=== PATIENT | female | born 1960 | race Caucasian/White ===

== ENCOUNTER → 2017-02-23 | Outpatient (CLI) | payer BC, OTHER ==
[~2017-02-23] MED LIST: No meds per pt.
[2017-02-23 11:00] LABS: ASPARTATE AMINO TRANSFERASE 27 U/L (15-37); BLOOD UREA NITROGEN 19 mg/dL (7-18)
[2017-02-23 11:37] LABS: HIV 1&2 ANTIBODY SCREEN Nonreactive (Nonreactive); HIV-1 p24 ANTIGEN Nonreactive (Nonreactive)
[2017-02-23 19:58] LABS: HEPATITIS C VIRUS ANTIBODY Nonreactive (Nonreactive)
== END | disposition home or self-care (01) ==
LOC: STAR 09:32
PROVIDERS: ATTEND Orthopaedic Surgery Orthopaedic Surgery of the Spine
DX: Z01.818 Encounter for other preprocedural examination (principal); M47.894 Other spondylosis, thoracic region; R79.1 Abnormal coagulation profile
CPT/HCPCS: 36415; 71020; 80053; 80074; 81001; 81003; 85025; 85610; 85651; 85730; 86703; 87899; 93005; G0435

== ENCOUNTER 2017-03-07 10:55 | Inpatient (IN) | payer BC, OTHER ==
[~2017-03-07] VITALS: Ht 157.5 cm; Wt 102.6 kg
[~2017-03-07 10:55] MED LIST changes: +BUPIVACAINE/PF-EPI 0.5% 1:200K ONE; +CEFAZOLIN 1,000 MG ONE; +DEXAMETHASONE 4 MG/ML, 1ML ONE; +EPINEPHRINE 1 MG/ML, 1ML ONE; +FENTANYL PF 100 MCG/2ML ONE; +LIDOCAINE/PF 1%, 30ML ONE; +ONDANSETRON 2MG/ML, 2ML ONE; +PHENYLEPHRINE 10 MG/ML ONE; +PROPOFOL 10 MG/ML, 20ML ONE; +PROPOFOL 10 MG/ML, 50ML ONE; +ROCURONIUM 10 MG/ML ONE; +SUCCINYLCHOLINE 20 MG/ML, 10ML ONE; +THROMBIN 5,000 UNIT VIAL TP ONE; +VANCOMYCIN 1,000 MG ONE; +morphine SULFATE/PF 1 MG/ML, 10ML ONE
[2017-03-07] MEDS ORDERED: LACTATED RINGERS 1,000 ML IV SCH (11:31)
[2017-03-07] MEDS ORDERED: GABA300C10 PO (11:31)
[2017-03-07] MEDS ORDERED: MUPI22OI2 NAS (11:31)
[2017-03-07] MEDS ORDERED: ASCO-96 PO (11:31)
[2017-03-07] MEDS ORDERED: MULT-464 PO (11:31)
[2017-03-07] MEDS ORDERED: CELE200C PO (11:31)
[2017-03-07] MEDS ORDERED: VITA1CAP PO (11:31)
[2017-03-07] MEDS ORDERED: LIDOCAINE 1%, 2ML ONE (11:39)
[2017-03-07] MEDS ORDERED: LIDOCAINE 1%, 2ML SQ PRN (12:00)
[2017-03-07] MEDS ORDERED: FENTANYL PF 100 MCG/2ML ONE ×3 (12:45)
[2017-03-07] MEDS ORDERED: MIDAZOLAM 1 MG/ML, 2ML ONE (12:45)
[2017-03-07] MEDS ORDERED: MEPERIDINE/PF 25MG/0.5ML IVPush PRN (14:00)
[2017-03-07] MEDS ORDERED: OXYcodone 5 MG/5 ML ORAL.SOL UDC PO PRN (14:00)
[2017-03-07] MEDS ORDERED: PROMETHAZINE 25 MG/ML, 1ML IV PRN (14:00)
[2017-03-07] MEDS ORDERED: METOCLOPRAMIDE 5 MG/ML, 2ML IV PRN (14:00)
[2017-03-07] MEDS ORDERED: FENTANYL PF 100 MCG/2ML IV PRN (14:00)
[2017-03-07] MEDS ORDERED: HYDROmorphone 1 MG/ML, 1ML IV PRN (14:00)
[2017-03-07] MEDS ORDERED: LABETALOL 5MG/ML, 20ML IV PRN ×2 (14:00→20:00)
[2017-03-07] MEDS ORDERED: hydrALAzine 20 MG/ML, 1ML IV PRN (14:00)
[2017-03-07] MEDS ORDERED: ACETAMINOPHEN 325 MG TABLET PO PRN ×2 (14:00→20:00)
[2017-03-07] MEDS ORDERED: ONDANSETRON 2MG/ML, 2ML IVPush PRN (14:00)
[2017-03-07] MEDS ORDERED: GENTAMICIN 80 MG/2 ML ONE (14:13)
[2017-03-07] MEDS ORDERED: BUPIVACAINE/PF 0.25% ONE (17:11)
[2017-03-07] MEDS ORDERED: OXYcodone 5 MG/5 ML ORAL.SOL UDC ONE (18:14)
[2017-03-07] MEDS ORDERED: DIAZEPAM 5 MG/ML, 2ML IV PRN (20:00)
[2017-03-07] MEDS ORDERED: DIPHENHYDRAMINE 50 MG/ML, 1ML IVPush PRN (20:00)
[2017-03-07] MEDS ORDERED: PROMETHAZINE 25 MG/ML, 1ML IM PRN (20:00)
[2017-03-07] MEDS ORDERED: DIAZEPAM 5 MG TABLET PO PRN (20:00)
[2017-03-07] MEDS ORDERED: ACETAMINOPHEN 650 MG SUPP PR PRN (20:00)
[2017-03-07] MEDS ORDERED: HYDROmorphone 1 MG/ML, 1ML IM PRN (20:00)
[2017-03-07] MEDS ORDERED: DIPHENHYDRAMINE 50 MG/ML, 1ML IM PRN (20:00)
[2017-03-07] MEDS ORDERED: HYDROcodone/APAP 10/325 MG TABLET PO PRN (20:00)
[2017-03-07] MEDS ORDERED: DIPHENHYDRAMINE 50 MG CAPSULE PO PRN (20:00)
[2017-03-07] MEDS: D5%-0.9% NACL+KCL 20MEQ 1,000 ML IV SCH (20:00)
[2017-03-07] MEDS ORDERED: MAGNESIUM HYDROXIDE 8%, 30ML UDC PO PRN (20:00)
[2017-03-07] MEDS ORDERED: BISACODYL 10 MG SUPP PR PRN (20:00)
[2017-03-07] MEDS ORDERED: HYDROmorphone 2MG TABLET PO PRN (20:00)
[2017-03-07 20:26] VITALS: BP 116/70
[2017-03-07] MEDS: METOCLOPRAMIDE 5 MG/ML, 2ML IV SCH (21:11)
[2017-03-07] MEDS: ACETAMINOPHEN 500 MG TABLET PO SCH (21:11)
[2017-03-07] MEDS: GABAPENTIN 300 MG CAPSULE PO SCH (21:11)
[2017-03-07] MEDS: CEFAZOLIN PMX 1GM/50ML 50 ML IVPB SCH (21:53)
[2017-03-07 23:59] VITALS: BP 108/63
[2017-03-08] MEDS: ACETAMINOPHEN 500 MG TABLET PO SCH ×2 (03:59→12:18)
[2017-03-08] MEDS: METOCLOPRAMIDE 5 MG/ML, 2ML IV SCH (03:59)
[2017-03-08] MEDS: D5%-0.9% NACL+KCL 20MEQ 1,000 ML IV SCH ×2 (04:00→12:18)
[2017-03-08 04:52] VITALS: BP 98/62
[2017-03-08] MEDS: CEFAZOLIN PMX 1GM/50ML 50 ML IVPB SCH (05:25)
[2017-03-08 08:16] VITALS: BP 95/53
[2017-03-08] MEDS: GABAPENTIN 300 MG CAPSULE PO SCH (08:44)
[2017-03-08] MEDS ORDERED: ASCORBIC ACID 500 MG TABLET PO SCH (09:00)
[2017-03-08] MEDS ORDERED: MULTIVITAMIN 1 TABLET PO SCH (09:00)
[2017-03-08] MEDS ORDERED: SENNA/DOCUSATE TABLET PO SCH (09:00)
[2017-03-08] MEDS: OXYcodone IR 5MG TABLET PO PRN ×2 (10:35→14:27)
[2017-03-08 13:26] VITALS: BP 99/66
[2017-03-08] MEDS ORDERED: ZOLPIDEM 5MG TABLET PO PRN (21:00)
== END 2017-03-08 15:24 | disposition home or self-care (01) | DRG 517 ==
LOC: OUT 10:55 → 4NOR 18:40 → OUT 22:06 → DCLOUNGE 03-08 15:06
PROVIDERS: ADMIT Orthopaedic Surgery Orthopaedic Surgery of the Spine; ATTEND Orthopaedic Surgery Orthopaedic Surgery of the Spine
PROC: 01NB0ZZ Release Lumbar Nerve, Open Approach (ICD-10-PCS; 2017-03-07)
PROC: 0QB10ZZ Excision of Sacrum, Open Approach (ICD-10-PCS; 2017-03-07)
PROC: 3E0S3GC Introduction of Other Therapeutic Substance into Epidural Space, Percutaneous Approach (ICD-10-PCS; 2017-03-07)
PROC: 0QB00ZZ Excision of Lumbar Vertebra, Open Approach (ICD-10-PCS; principal; 2017-03-07 13:00)
DX: M48.06 Spinal stenosis, lumbar region (principal); M47.26 Other spondylosis with radiculopathy, lumbar region; M51.16 Intervertebral disc disorders with radiculopathy, lumbar region
CPT/HCPCS: 72100; J0171; J0690; J1100; J2250; J2274; J2405; J2704; J3010; J3370; J3490; C1751; J0330; J1580; J2370; J2765; J3480; J7120

== ENCOUNTER 2017-11-05 09:10 | Emergency (ER) | payer BC ==
[~2017-11-05] VITALS: Ht 157.5 cm; Wt 118.8 kg
[~2017-11-05 09:10] MED LIST changes: +ASCO-96 PO; -BUPIVACAINE/PF-EPI 0.5% 1:200K ONE; -CEFAZOLIN 1,000 MG ONE; +CELE200C PO; -DEXAMETHASONE 4 MG/ML, 1ML ONE; -EPINEPHRINE 1 MG/ML, 1ML ONE; -FENTANYL PF 100 MCG/2ML ONE; +GABA300C10 PO; -LIDOCAINE/PF 1%, 30ML ONE; +MULT-464 PO; +MUPI22OI2 NAS; -ONDANSETRON 2MG/ML, 2ML ONE; -PHENYLEPHRINE 10 MG/ML ONE; -PROPOFOL 10 MG/ML, 20ML ONE; -PROPOFOL 10 MG/ML, 50ML ONE; -ROCURONIUM 10 MG/ML ONE; -SUCCINYLCHOLINE 20 MG/ML, 10ML ONE; -THROMBIN 5,000 UNIT VIAL TP ONE; -VANCOMYCIN 1,000 MG ONE; +VITA1CAP PO; -morphine SULFATE/PF 1 MG/ML, 10ML ONE
[2017-11-05] MEDS ORDERED: DIPHENHYDRAMINE 50 MG/ML, 1ML ONE ×2 (09:38→10:35)
[2017-11-05] MEDS ORDERED: PROCHLORPERAZINE 5 MG/ML, 2ML ONE (09:38)
[2017-11-05] MEDS ORDERED: DIPHENHYDRAMINE 50 MG/ML, 1ML IVPush ONE ×2 (10:00→11:00)
[2017-11-05] MEDS ORDERED: SODIUM CHLORIDE FLUSH 10ML SYR IVF ONE (10:00)
[2017-11-05] MEDS ORDERED: PROCHLORPERAZINE 5 MG/ML, 2ML IVPush ONE (10:00)
[2017-11-05] MEDS ORDERED: SODIUM CHLORIDE 0.9% 1,000ML IVBOLUS ONE (10:00)
[2017-11-05] MEDS ORDERED: SERTRALINE (10:07)
[2017-11-05] MEDS ORDERED: LORazepam 2 MG/ML, 1ML IVPush STA (10:58)
[2017-11-05] MEDS ORDERED: LORazepam 2 MG/ML, 1ML ONE (10:59)
[2017-11-05] MEDS ORDERED: DEXAMETHASONE 4 MG/ML, 1ML ONE (11:38)
[2017-11-05] MEDS ORDERED: DEXAMETHASONE 4 MG/ML, 1ML IVPush ONE (12:00)
[2017-11-05 12:24] VITALS: BP 146/83
== END 2017-11-05 12:26 | disposition home or self-care (01) ==
LOC: ED 10:18
DX: G43.011 Migraine without aura, intractable, with status migrainosus (principal)
CPT/HCPCS: 96361; 96374; 96375; 99284; J0780; J1200; J2060; J7030

== ENCOUNTER 2019-02-20 07:49 | Outpatient (CLI) | payer BC, OTHER ==
[~2019-02-20 07:49] MED LIST changes: +SERTRALINE
[2019-02-20 09:03] LABS: BASOPHILS # (AUTO) 0.04 x10^3/uL (0-0.1); BASOPHILS % (AUTO) 1 % (0-1); EOSINOPHILS # (AUTO) 0.08 x10^3/uL (0-0.4); EOSINOPHILS % (AUTO) 2 % (1-7); LYMPHOCYTES # (AUTO) 1.49 x10^3/uL (1-3.4); LYMPHOCYTES % (AUTO) 32 % (22-44); MD NO; MEAN CORPUSCULAR HEMOGLOBIN 29.6 pg (27.0-34.8); MEAN CORPUSCULAR HGB CONC 33.2 g/dL (32.4-35.8); MEAN CORPUSCULAR VOLUME 89.1 fL (80-100); MONOCYTES # (AUTO) 0.31 x10^3/uL (0.2-0.8); MONOCYTES % (AUTO) 7 % (2-9); NEUTROPHILS % (AUTO) 59 % (42-75); PLATELET COUNT 160 x10^3/uL (130-400); RED BLOOD COUNT 4.62 x10^6/uL (3.82-5.3); RED CELL DISTRIBUTION WIDTH 13.6 % (9.6-15.2)
[2019-02-20 09:08] LABS: INTERNATIONAL NORMALIZED RATIO 0.95 (0.93-1.1)
[2019-02-20 09:09] LABS: ANION GAP 6 mmol/L (5-15); CALCIUM 8.7 mg/dL (8.5-10.1); CHLORIDE 112 mmol/L (98-107); CREATININE 0.74 mg/dL (0.55-1.02)
[2019-02-20] MEDS ORDERED: GLUC500T11 PO (09:52)
[2019-02-20] MEDS ORDERED: OMEP20TA62 PO (09:52)
[2019-02-20] MEDS ORDERED: MULT1TAB60 PO (09:52)
[2019-02-20] MEDS ORDERED: CHOL5000 PO (09:52)
[2019-02-20] MEDS ORDERED: TURM500C4 PO (09:52)
[2019-02-20] MEDS ORDERED: SERT100T32 PO (09:52)
[2019-02-20] MEDS ORDERED: BIOT1CAP3 PO (09:52)
[2019-02-20] MEDS ORDERED: FISH1CAP PO (09:52)
[2019-02-20 10:01] LABS: HEMOGLOBIN A1C 5.3 % (4.2-6.3)
[2019-03-05] MEDS ORDERED: ASPI81TA45 PO (09:31)
== END 2019-02-20 23:59 | disposition home or self-care (01) ==
LOC: STAR 07:49
PROVIDERS: ATTEND Orthopaedic Surgery
DX: Z01.818 Encounter for other preprocedural examination (principal); M17.11 Unilateral primary osteoarthritis, right knee; M25.562 Pain in left knee
CPT/HCPCS: 36415; 80048; 83036; 85025; 85610; 85730; 87081; 87806; 93005; G0475

== ENCOUNTER 2019-03-04 05:41 | Observation (INO) | payer BC, OTHER ==
[~2019-03-04] VITALS: Ht 157.5 cm; Wt 97.9 kg
[2019-03-05 08:15] VITALS: BP 122/72
== END 2019-03-05 12:24 | disposition home or self-care (01) ==
LOC: OUT 05:41 → EDSTATUS 10:30 → 4NOR 11:45 → OUT 23:15 → 4NOR 23:15 → DCLOUNGE 03-05 12:15
PROVIDERS: ADMIT Orthopaedic Surgery; ATTEND Orthopaedic Surgery
DX: M17.11 Unilateral primary osteoarthritis, right knee (principal); K21.9 Gastro-esophageal reflux disease without esophagitis; F32.9 Major depressive disorder, single episode, unspecified; Z79.82 Long term (current) use of aspirin; Z79.899 Other long term (current) drug therapy
CPT/HCPCS: 27447; 36415; 73560; 85014; 85018; 96365; 96366; 96375; 96376; 97110; 97161; C1713; C1776; G0378; J0171; J0330; J0690; J1100; J1885; J2250; J2405; J2704; J2795; J3010; J3480; J3490